=== PATIENT | male | born 1990 | race African-American/Black ===

== ENCOUNTER 2019-08-06 09:03 | Emergency (ER) | payer MEDICAID, OTHER ==
[~2019-08-06] VITALS: Ht 172.7 cm; Wt 100.0 kg
[2019-08-06 09:29] VITALS: BP 128/78
== END 2019-08-06 10:53 | disposition left against medical advice (07) ==
LOC: ER 09:03
DX: M62.838 Other muscle spasm (principal); Z53.21 Procedure and treatment not carried out due to patient leaving prior to being seen by health care provider